=== PATIENT | female | born 1930 | race Caucasian/White ===

== ENCOUNTER 2016-11-16 16:57 | Emergency (ER) | payer OTHER ==
[~2016-11-16] VITALS: Ht 167.6 cm; Wt 49.1 kg
[2016-11-16 17:32] LABS: HEMATOCRIT 37.3 % (36.0-46.0); MEAN PLAT.VOLUME 9.1 uM^3 (9.5-12.4); PLATELET COUNT 210 K/uL (156-360); RBC DIS.WIDTH-CV 13.3 % (11.8-14.6); RBC DIS.WIDTH-SD 44.4 % (39-53); RED BLOOD COUNT 3.97 M/uL (3.80-5.20); WHITE BLOOD COUNT 7.8 K/uL (4.1-10.2)
[2016-11-16 17:38] LABS: BASE EXCESS 5.4 mEq/L (-3 to +3); CARBOXY HGB 3.6 % (0-5); COMMENTS - BLOOD GASES A+C+; DEVICE NC; METHEMOGLOBIN 1.2 % (0-1.5); O2 FLOW 6 L/MIN; PCO2 38 mm Hg (35-45); PO2 62 mm Hg (80-100); SITE LR; TOTAL RESP RATE 24 resp/min; pH 7.49 (7.35-7.45)
[2016-11-16 18:05] LABS: TROP-I INTERPRETATION NEGATIVE; TROPONIN-I 0.02 ng/mL (0.0-0.30)
[2016-11-16 18:08] LABS: BASOPHIL COUNT 0.1 K/uL (0-0.1); EOSINOPHIL (%) 0 % (0-5); HEMATOLOGY COMMENT 1 SMEAR COMPATIBLE; IMMATURE GRANULOCYTE (%) 0.3 % (0.0-0.7); IMMATURE GRANULOCYTE COUNT 0.2 K/uL; MONOCYTE (%) 5.6 % (3-12); MONOCYTE COUNT 0.4 K/uL (0-0.8); NEUTROPHIL (%) 79.9 % (45-76); NEUTROPHIL COUNT 6.3 K/uL (1.8-6.4); PLAT.SUFFICIENCY ADEQUATE; USER ID NPD
[2016-11-16 18:18] LABS: CHLORIDE 102 mEq/L (99-109); SODIUM 140 mEq/L (136-147)
[2016-11-16 18:20] LABS: GLUCOSE 126 mg/dL (70-99)
[2016-11-16 18:21] LABS: ANION GAP 11 MEQ/L (2-14)
[2016-11-16 18:22] LABS: TOTAL BILIRUBIN 0.5 mg/dL (0.0-1.0)
[2016-11-16 18:23] LABS: ALKALINE PHOSPHATASE 87 IU/L (3-129)
[2016-11-16 18:24] LABS: GFR ESTIMATE (CALCULATED) > 59 mL/min/
[2016-11-16 18:25] LABS: UREA NITROGEN (BUN) 27 mg/dL (9-23)
[2016-11-16] MEDS ORDERED: LO-DOSE ASPIRIN81 M2 PO (18:28)
[2016-11-16] MEDS ORDERED: MOBIC7.5 MG PO (18:28)
[2016-11-16] MEDS ORDERED: ADVIL,NUPRIN,M200 MG PO (18:29)
[2016-11-16] MEDS ORDERED: ALKA-SELTZER P1 EAC6 PO (18:30)
[2016-11-16] MEDS ORDERED: ZITHROMAX500 MG PO (20:22)
[2016-11-16] MEDS ORDERED: PROAIR HFA8.5 GM IH (20:22)
[2016-11-16] MEDS ORDERED: CEFTIN500 MG PO (20:22)
[2016-11-16 20:46] VITALS: BP 117/62
== END 2016-11-16 21:02 | disposition home or self-care (01) ==
LOC: EME 16:57
PROVIDERS: Emergency Medicine
DX: J45.901 Unspecified asthma with (acute) exacerbation (principal); R09.02 Hypoxemia; Z91.19 Patient's noncompliance with other medical treatment and regimen; F17.200 Nicotine dependence, unspecified, uncomplicated
CPT/HCPCS: 36600; 71010; 80053; 82803; 83880; 84484; 85025; 93005; 94640; 99281; 99285; J0696; J1100; J7050

== ENCOUNTER 2016-11-20 09:01 | Inpatient (IN) | payer OTHER ==
[~2016-11-20] VITALS: Ht 167.6 cm; Wt 48.2 kg
[2016-11-20] VITALS (10 sets, daily range): BP systolic 127–153; BP diastolic 58–82
[~2016-11-20 09:01] MED LIST: ADVIL,NUPRIN,M200 MG PO; ALKA-SELTZER P1 EAC6 PO; CEFTIN500 MG PO; LO-DOSE ASPIRIN81 M2 PO; MOBIC7.5 MG PO; PROAIR HFA8.5 GM IH; ZITHROMAX500 MG PO
[2016-11-20 09:51] LABS: HEMATOCRIT 40.1 % (36.0-46.0); MCH 31.3 PG (29.0-34.0); MCHC 33.9 G/DL (30.0-36.0); MCV 92.2 FL (83-99); RBC DIS.WIDTH-CV 13.5 % (11.8-14.6); RBC DIS.WIDTH-SD 43.8 % (39-53); RED BLOOD COUNT 4.35 M/uL (3.80-5.20); WHITE BLOOD COUNT 9.1 K/uL (4.1-10.2)
[2016-11-20 10:01] LABS: MEAN PLAT.VOLUME 9.2 uM^3 (9.5-12.4)
[2016-11-20 10:02] LABS: PLATELET COUNT 311 K/uL (156-360)
[2016-11-20 10:03] LABS: CARBON DIOXIDE (BICARBONATE) 27.7 MEQ/L (20-31); CHLORIDE 102 mEq/L (99-109); POTASSIUM 3.4 mEq/L (3.7-5.4); SODIUM 136 mEq/L (136-147)
[2016-11-20 10:05] LABS: GLUCOSE 147 mg/dL (70-99)
[2016-11-20 10:07] LABS: ANION GAP 9 MEQ/L (2-14)
[2016-11-20 10:09] LABS: GFR ESTIMATE (CALCULATED) > 59 mL/min/
[2016-11-20 10:10] LABS: UREA NITROGEN (BUN) 16 mg/dL (9-23)
[2016-11-20 10:17] LABS: TROP-I INTERPRETATION NEGATIVE; TROPONIN-I < 0.01 ng/mL (0.0-0.30)
[2016-11-20 18:04] LABS: COLOR YELLOW ((YELLOW)); GLUCOSE (STRIP) 50; KETONES NEGATIVE; LEUKOCYTES NEGATIVE; NITRITE NEGATIVE; PROTEIN (STRIP) NEGATIVE; SPECIFIC GRAVITY 1.011 (1.000-1.030); UROBILINOGEN 0.2 MG/DL (0.2-1.0)
[2016-11-20 18:05] LABS: ADD MIUA? NO; BILIRUBIN NEGATIVE; BLOOD NEGATIVE; UCUL ADDED? NO
[2016-11-21 04:00] VITALS: BP 113/57
[2016-11-21 08:15] LABS: INTERNAL CONTROL VALID? YES
[2016-11-21 08:32] LABS: EOSINOPHIL (%) 0 % (0-5); HEMATOCRIT 34.3 % (36.0-46.0); IMMATURE GRANULOCYTE (%) 1.1 % (0.0-0.7); IMMATURE GRANULOCYTE COUNT 0.1 K/uL; LYMPHOCYTE COUNT 0.9 K/uL (1.0-2.8); MCH 31.2 PG (29.0-34.0); MCHC 33.2 G/DL (30.0-36.0); MEAN PLAT.VOLUME 9.5 uM^3 (9.5-12.4); MONOCYTE (%) 3.6 % (3-12); MONOCYTE COUNT 0.2 K/uL (0-0.8); NEUTROPHIL (%) 77.9 % (45-76); NEUTROPHIL COUNT 4.2 K/uL (1.8-6.4); PLATELET COUNT 292 K/uL (156-360); RBC DIS.WIDTH-CV 13.8 % (11.8-14.6); RBC DIS.WIDTH-SD 47.3 % (39-53); RED BLOOD COUNT 3.65 M/uL (3.80-5.20)
[2016-11-21 08:42] VITALS: BP 111/57
[2016-11-21 08:51] LABS: ALKALINE PHOSPHATASE 69 IU/L (3-129); ANION GAP 9 MEQ/L (2-14); CHLORIDE 107 MEQ/L (99-109); DIRECT BILIRUBIN 0.2 mg/dL (0.0-0.3); GFR ESTIMATE (CALCULATED) > 59 mL/min/; POTASSIUM 3.9 MEQ/L (3.7-5.4); SAMPLE HEMOLYSIS CHECK 0; SAMPLE ICTERIC CHECK 0; SAMPLE LIPEMIA CHECK 0; SODIUM 141 MEQ/L (136-147); TOTAL BILIRUBIN 0.4 MG/DL (0.0-1.0); UREA NITROGEN (BUN) 14 mg/dL (9-23); WHITE BLOOD COUNT 5.3 K/uL (4.1-10.2)
[2016-11-21 08:55] LABS: GLUCOSE 243 mg/dL (70-99)
[2016-11-21 12:20] VITALS: BP 118/56
[2016-11-21 15:43] VITALS: BP 140/65
[2016-11-21 19:55] VITALS: BP 128/69
[2016-11-21 23:26] VITALS: BP 126/65
[2016-11-22 03:17] VITALS: BP 128/69
[2016-11-22 07:30] VITALS: BP 130/82
[2016-11-22] MEDS ORDERED: AUGMENTIN875 MG PO (07:40)
[2016-11-22] MEDS ORDERED: DELTASONE20 M1 PO (07:40)
[2016-11-22 12:15] VITALS: BP 138/71
== END 2016-11-22 12:25 | disposition home health service (06) | DRG 190 ==
LOC: EME 09:01 → EDOF 11:24 → 2EAST 11:24 → EDOF 12:03 → 2EAST 13:45
PROVIDERS: Emergency Medicine; Internal Medicine
DX: J44.1 Chronic obstructive pulmonary disease with (acute) exacerbation (principal); J18.9 Pneumonia, unspecified organism; R64 Cachexia; Z68.1 Body mass index [BMI] 19.9 or less, adult; Z66 Do not resuscitate; Z91.19 Patient's noncompliance with other medical treatment and regimen; F17.210 Nicotine dependence, cigarettes, uncomplicated; R09.02 Hypoxemia; E87.6 Hypokalemia; Z99.81 Dependence on supplemental oxygen; H91.90 Unspecified hearing loss, unspecified ear
CPT/HCPCS: 71010; 80048; 80076; 81003; 82803; 83605; 83880; 84484; 85025; 85027; 87040; 87070; 87205; 87449; 93005; 94640; 94640 76; 94799; 99202; 99281; 99285; J1644; J2543; J2920; J7050; J7512